=== PATIENT | male | born 1990 | race African-American/Black ===

== ENCOUNTER 2019-04-14 07:58 | Emergency (ER) | payer SELFPAY ==
[2019-04-14 08:18] VITALS: BP 130/82
--- NOTE | 2019-04-14 08:24 | ER Document Report ---
HPI - HPI Time Seen by Provider: 04/14/19 08:15 Pain Level: Denies Notes: Patient is a 28-year-old male with no significant past medical history who presents for a work note after calling out this morning. Patient states that he woke up in the middle night noticing some dull chest pain that was relieved with water and going back to sleep. Patient states that he woke up "completely fine." His work is requiring a work note for him. Patient states that he is eating and drinking without difficulty. He is urinating normally. No recent illness. Denies any prolonged immobilization, distance travel, recent surgery/trauma, personal cancer history, hormone use, smoking, or previous DVT/PE. Denies any headache, fever, neck pain, URI, sore throat, palpitations, syncope, cough, shortness of breath, wheeze, dyspnea, abdominal pain, nausea/vomiting/diarrhea, urinary retention, dysuria, hematuria, or rash. - ROS Systems Reviewed and Negative: Yes All other systems reviewed and negative - REPRODUCTIVE Reproductive: DENIES: : Past Medical History - Social History Smoking Status: Never Smoker Chew tobacco use (# tins/day): No Frequency of alcohol use: Occasional Drug Abuse: None Family History: Other - Allergic reaction to shellfish - mother Patient has suicidal ideation: No Patient has homicidal ideation: No - Immunizations Hx Diphtheria, Pertussis, Tetanus Vaccination: No Vertical Provider Document - CONSTITUTIONAL Agree With Documented VS: Yes Notes: PHYSICAL EXAMINATION: GENERAL: Well-appearing, well-nourished and in no acute distress. HEAD: Atraumatic, normocephalic. EYES: Pupils equal round and reactive to light, extraocular movements intact, sclera anicteric, conjunctiva are normal. ENT: Nares patent and without discharge. oropharynx clear without exudates. No tonsilar hypertrophy or erythema. Moist mucous membranes. NECK: Normal range of motion, supple without lymphadenopathy LUNGS: Breath sounds clear to auscultation bilaterally and equal. No wheezes rales or rhonchi. HEART: Regular rate and rhythm without murmurs, rubs, gallops. ABDOMEN: Soft, nontender, nondistended abdomen. No guarding, no rebound. No masses appreciated. Normal bowel sounds present. No CVA tenderness bilaterall y. Musculoskeletal: FROM to passive/active. Strength 5+/5. Carlos neg. No asymmetry to LE's. Extremities: No cyanosis, clubbing, or edema b/l. Peripheral pulses 2+. Capillary refill less than 3 seconds. NEUROLOGICAL: Normal speech, normal gait. PSYCH: Normal mood, normal affect. SKIN: Warm, Dry, normal turgor, no rashes or lesions noted. - INFECTION CONTROL TRAVEL OUTSIDE OF THE [place] IN LAST 30 DAYS: No Course - Re-evaluation Re-evalutation: 04/14/19 08:21 Patient is an afebrile, well-hydrated 28-year-old male who presents to the ED with resolved chest pain, unspecified. Vitals are acceptable without any significant tachycardia, tachypnea, or hypoxia. PE is otherwise unremarkable. Patient is nontoxic-appearing and is tolerating p.o. without any difficulties. Pt is currently asymptomatic. EKG unremarkable for any acute pathology. Patient has a Wells score of 0 and is PERC negative. Patient does not have any chest pain, dyspnea, or shortness of breath. I reviewed with patient that at minimum we usually obtain an EKG and CXR to further evaluate. Pt states that "I feel that any other testing would be unnecessary and he does not want any tests done. Pt states that he just needs a work note. His symptoms resolved with water and have not returned. I do have lower suspicion for ACS, PE, pneumothorax, pericarditis, dissection, respiratory compromise, severe dehydration, sepsis, meningitis, or other systemic emergent condition at this time, but reviewed with patient that I cannot firmly say that he does not have one thing or another w/o the work up being performed. Pt verbalized understanding to this but still does not want any work up performed. Patient is aware that his condition can change from initial presentation and he needs to monitor symptoms closely and seek medical attention for any acute changes. Recommend conservative measures for symptoms. Recheck with your PCM in 2-3 days. Consider consult with Cardiology. Return to the ED with any worsening/concerning symptoms otherwise as reviewed in discharge. Patient is in agreement. - Vital Signs Vital signs: Temp Pulse Resp BP Pulse Ox 97.9 F 60 16 130/82 H 99 04/14/19 08:16 04/14/19 08:16 04/14/19 08:16 04/14/19 08:16 04/14/19 08:16 Discharge - Discharge Clinical Impression: Atypical chest pain Condition: Stable Disposition: HOME, SELF-CARE Instructions: Chest Pain of Unclear Cause ([facility]) Additional Instructions: Maintain adequate fluid and food intake Take home medications as directed Healthy diet Monitor blood pressure daily and keep a log Monitor symptoms for any acute changes Recheck with your PCM in 2-3 days Consider a follow-up with cardiology Return to the ED with any worsening symptoms and/or development of fever, headache, chest pain, palpitations, syncope, shortness of breath, trouble breathing, abdominal pain, n/v/d, blood in stool/urine, loss of control of bowel/bladder, urinary retention, muscle weakness/paralysis, numbness/tingling, or other worsening symptoms that are concerning to you. Forms: Return to Work, Elevated Blood Pressure Referrals: DEVANTE RAHMAN MD [ACTIVE STAFF] - Follow up as needed
--- NOTE | 2019-04-15 11:30 | EKG REPORT ---
SEVERITY:- OTHERWISE NORMAL ECG - SINUS RHYTHM LEFT AXIS DEVIATION : Confirmed by: Ronal Gonzalez 15-Apr-2019 11:30:16
== END 2019-04-14 08:26 | disposition home or self-care (01) ==
LOC: ER 07:58
DX: R07.89 Other chest pain (principal)
CPT/HCPCS: 93005; 93010; 99284